=== PATIENT | female | born 1995 | race Caucasian/White ===

== ENCOUNTER 2022-12-21 23:39 | Inpatient (IN) ==
[2022-12-22] MEDS ORDERED: LACTATED RINGER'S 1,000 ML IV PRN (00:19)
[2022-12-22] MEDS ORDERED: LIDOCAINE 1% LOCAL 20 ML VIAL INFIL PRN (00:19)
[2022-12-22] MEDS ORDERED: OXYTOCIN 30 UNITS/500 ML BAG IV PRN ×2 (00:19→04:14)
[2022-12-22 01:00] LABS: Hematocrit (blood only) 31.9 % (37.0-47.0); Hemoglobin 10.8 g/dl (12.0-16.0); Mean Corpuscular Hgb Conc 33.9 g/dL (32.0-36.0); Mean Corpuscular Volume 91.7 fL (80.0-100.0); Platelet Count 224 K/uL (130-400); RDW Coefficient of Variation 13.8 % (11.5-14.5); RDW Standard Deviation 46.9 fL (36.4-46.3); Red Blood Count 3.48 M/uL (4.20-5.40); White Blood Count 10.76 K/ul (4.8-10.8)
[2022-12-22] MEDS ORDERED: fentaNYL citrate 100 MCG/2 ML VIAL ONE (01:05)
[2022-12-22] MEDS ORDERED: BUPIVACAINE 0.25% 30 ML VIAL ONE (01:05)
[2022-12-22] MEDS ORDERED: SODIUM CHLORIDE 0.9% INJ 10 ML VIAL ONE (01:05)
[2022-12-22] MEDS ORDERED: ePHEDrine sulfate 50 MG/ML AMP ONE (01:05)
[2022-12-22] MEDS ORDERED: LIDOCAINE 2%/EPINEPHRINE 1:200,000 20 ML SDV ONE (01:05)
[2022-12-22] MEDS ORDERED: fentaNYL 2MCG/ML ROPIVACAINE 1.25MG/ML 100 ML BAG EPI ONE (01:05)
--- NOTE | 2022-12-22 01:39 | Anesthesiology Consultation ---
Date of Service December 22, 2022 Assessment & Plan Chart Review Chart Review: Acceptable Risk for Labor Epidural Consults Requested none ASA ASA2 Proposed Anesthesia Anesthesia Type: Labor Epidural Risk / Benefits Reviewed With: PT / POA / Parent / Guardian, Accepts Plan and Informed Consent Obtained History Height/Weight Height: 5 ft 5 in Weight: 81.647 kg Allergies Allergy/AdvReac Type Severity Reaction Status Date / Time Penicillins AdvReac Chills Verified 12/22/22 00:07 Medications Home Medications Medication Instructions Recorded Confirmed Last Taken ferrous sulfate 325 mg (65 mg 1 mg PO DAILY 12/22/22 12/22/22 Unknown iron) tablet (Iron (ferrous sulfate)) Active Medications Generic Name Dose Route Start Last Admin Trade Name Freq PRN Reason Stop Dose Admin Lactated Ringer's 1,000 mls @ 125 mls/hr 12/22/22 00:19 12/22/22 00:32 Lr IV 12/24/22 00:18 999 mls/hr .Q8H PRN Administration L&D Protocol Protocol Cefazolin Sodium 1,000 mg in 7.5 mls @ 2.5 mls/min 12/22/22 07:19 12/22/22 00:38 Ancef 1000mg IV 01/01/23 07:18 2.5 mls/min Q8H PRN Administration GBS(+) Until Delivery Exercise / Class Metabolic Activity II 4-5 Yardwork/Stairs/Walk up hill Past Anesthesia History No Hx of Anesthesia Complications and No Family Hx of Anesthesia Complications History of PONV No Hx of PONV and No Hx of Motion Sickness Social History Smoking Status: Never smoker Hx Alcohol Use: No Hx Substance Use: No Physical Exam Vital Signs Last Vital Signs Temp 36.5 C 12/21/22 23:54 Pulse 86 12/22/22 01:34 Resp 18 12/21/22 23:54 BP 125/82 12/22/22 01:34 Constitutional no acute distress ENMT Thyromental Distance: > or= 3.5 Finger Breadths Mallampati Class: II Neck normal visual inspection Respiratory normal respiratory effort; no respiratory distress Auscultation: lungs clear to auscultation bilaterally Cardiovascular Rate/Rhythm: regular rate and regular rhythm Heart Sounds: no murmur Psychiatric Orientation: alert and oriented x 3 Testing Laboratory Results 12/22/22 00:37
[2022-12-22] MEDS ORDERED: ONDANSETRON INJ 2 MG/ML 2 ML VIAL IV PRN (01:49)
[2022-12-22] MEDS ORDERED: NALBUPHINE HCL INJ 10 MG/ML AMP IV PRN (01:49)
[2022-12-22] MEDS ORDERED: NALOXONE HCL 1 MG in SODIUM CHLORIDE 0.9% 1000ML 1,000 ML IV PRN (01:49)
[2022-12-22] MEDS ORDERED: diphenhydrAMINE 50 MG/ML VIAL IV PRN (01:49)
[2022-12-22] MEDS ORDERED: NALOXONE HCL 0.4 MG/1 ML VIAL/CARP IV PRN (01:49)
[2022-12-22] MEDS ORDERED: ePHEDrine sulfate 50 MG/ML AMP IV PRN (01:49)
[2022-12-22] MEDS ORDERED: DIPHTHERIA/TETANUS/PERTUSSIS 0.5mL SYR/VIAL (Age 7+yrs) IM ONE (04:14)
[2022-12-22] MEDS ORDERED: ACETAMINOPHEN 325 MG TAB PO PRN (04:14)
[2022-12-22] MEDS ORDERED: BENZOCAINE 20% AER SPR 82.5 GM CAN EXT PRN (04:14)
[2022-12-22] MEDS ORDERED: bisacodyL 10 MG SUPP PR PRN (04:14)
[2022-12-22] MEDS ORDERED: HYDROCORTISONE ACETATE 25 MG SUPP PR PRN (04:14)
[2022-12-22] MEDS ORDERED: fentaNYL 2MCG/ML ROPIVACAINE 1.25MG/ML 100 ML BAG EPI PRN (05:11)
[2022-12-22] MEDS ORDERED: ceFAZolin 1000MG 1,000 MG/7.5 ML SYR IV PRN (07:19)
[2022-12-22] MEDS: DOCUSATE SODIUM 100 MG CAP PO SCH ×2 (07:31→20:57)
[2022-12-22] MEDS: PRENATAL VITAMIN 1 TAB PO SCH (07:31)
--- NOTE | 2022-12-22 07:32 | Anesthesia Procedure Note ---
Date of Service December 22, 2022 Anesthesia Post Epidural Note Vital Signs Vital Signs: Temp Pulse Resp BP 98.1 F 85 18 114/61 12/22/22 02:08 12/22/22 06:19 12/22/22 06:27 12/22/22 06:19 Notes Mental Status: alert / awake / arousable and participated in evaluation Nausea / Vomiting: adequately controlled Pain: adequately controlled Airway Patency, RR, SpO2: stable & adequate BP & HR: stable & adequate Hydration State: stable & adequate Neuraxial Anesthesia: was administered and sensory block is resolving Anesthetic Complications: no major complications apparent and Pt Satisfied with anesthetic care Epidural: Removed without complications and With tip intact
--- NOTE | 2022-12-22 07:57 | Delivery Summary ---
DELIVERY NOTE The patient delivered a live infant male in left occiput anterior with right hand presentation. Infa nt was delivered. No nuchal cord. Infant was placed on mother's abdomen. Delayed cord clamp was pe rformed. Cord blood was obtained. Placenta was spontaneously delivered. Inspection of the placenta shows normal looking placenta with 3-vessel cord. Inspection of the perineum showed a midline secon d-degree laceration, which was repaired with 2-0 Vicryl in layers. Rectal exam post repair showed go od sphincter tone. No sutures are palpated in the rectum. Estimated blood loss was 400 mL. All instruments were removed from the vagina and accounted for x2 in cluding sponges, needles, and retractors. The patient and are stable in recovery. Job ID: [id number]
[2022-12-22] MEDS ORDERED: MEASLES, MUMPS & RUBELLA VIRUS VIAL SQ ONE (14:45)
[2022-12-22] MEDS: IBUPROFEN 600 MG TAB PO PRN (20:57)
[2022-12-23 06:38] LABS: Hematocrit (blood only) 29.8 % (37.0-47.0); Hemoglobin 10.1 g/dl (12.0-16.0); Mean Corpuscular Hemoglobin 31.8 pg (25.0-34.0); Mean Corpuscular Hgb Conc 33.9 g/dL (32.0-36.0); Mean Corpuscular Volume 93.7 fL (80.0-100.0); Mean Platelet Volume 9.8 fL (9.4-12.4); Platelet Count 220 K/uL (130-400); RDW Coefficient of Variation 14.1 % (11.5-14.5); RDW Standard Deviation 48.7 fL (36.4-46.3); Red Blood Count 3.18 M/uL (4.20-5.40)
[2022-12-23] MEDS: DOCUSATE SODIUM 100 MG CAP PO SCH ×2 (08:09→20:39)
[2022-12-23] MEDS: PRENATAL VITAMIN 1 TAB PO SCH (08:09)
--- NOTE | 2022-12-23 11:01 | Obstetrical Progress Note ---
Date of Service December 23, 2022 Subjective Ambulation: ambulating normally Voiding: no voiding problems Passing Gas:: Yes Diet Tolerance:: regular diet Lochia:: Small Feeding Type:: bottle feeding Current Pain Level(1-10): 0 doing well Physical Exam Constitutional WD/WN, vitals as above Gastrointestinal (Abdomen) Inspection/Auscultation: abdomen normal to inspection abdomen soft and non-tender fundus firm below U Musculoskeletal Extremities: extremities normal to inspection Skin no rashes, warm and dry Neurologic patellar DTR's 2+ bilat, sensation intact Psychiatric A+Ox3, euthymic affect Results & Data Vital Signs (Past 12 Hours) Vital Signs Temp Pulse Resp BP Pulse Ox O2 Del Method 12/23/22 07:35 Room Air 12/23/22 07:35 36.7 C 86 18 118/71 99 Room Air 12/23/22 04:50 36.6 C 68 18 116/71 12/22/22 23:25 36.4 C L 69 18 115/67 Laboratory Results Laboratory Results - last 48 hr 12/22/22 12/22/22 12/23/22 00:37 Unknown 05:50 WBC 10.76 9.90 RBC 3.48 L 3.18 L Hgb 10.8 L 10.1 L Hct 31.9 L 29.8 L MCV 91.7 93.7 MCH 31.0 31.8 MCHC 33.9 33.9 RDW Std Deviation 46.9 H 48.7 H RDW Coeff of Moises 13.8 14.1 Plt Count 224 220 MPV 10.0 9.8 SARS-CoV-2, RNA, NAAT NEGATIVE
[2022-12-23] MEDS ORDERED: bisacodyL 5 MG TABEC PO SCH (20:00)
[2022-12-23] MEDS: IBUPROFEN 600 MG TAB PO PRN (20:39)
[2022-12-24 06:48] LABS: Hematocrit (blood only) 30.4 % (37.0-47.0); Hemoglobin 10.1 g/dl (12.0-16.0)
[2022-12-24] MEDS: PRENATAL VITAMIN 1 TAB PO SCH (09:24)
[2022-12-24] MEDS: DOCUSATE SODIUM 100 MG CAP PO SCH (09:24)
--- NOTE | 2022-12-24 09:46 | Obstetrical Progress Note ---
Date of Service December 24, 2022 Assessment & Plan Admission and Anticipated Discharge Date Admission Date: December 22, 2022 Subjective Patient is seen and examined. She feels well, no complaints. Ambulating without dizziness Voiding without difficulty Tolerating regular diet with out N&V Bleeding is minimal No fever/ chills/ CP/ SOB/ N&V/ Leg pain Bottle feeding without problems Vital Signs Temp Pulse Resp BP Pulse Ox O2 Del Method 12/23/22 23:40 36.6 C 78 16 101/62 98 Room Air Lab Results 12/22/22 12/22/22 12/23/22 Range/Units 00:37 Unknown 05:50 WBC 10.76 9.90 (4.8-10.8) K/ul RBC 3.48 L 3.18 L (4.20-5.40) M/uL Hgb 10.8 L 10.1 L (12.0-16.0) g/dl Hct 31.9 L 29.8 L (37.0-47.0) % MCV 91.7 93.7 (80.0-100.0) fL MCH 31.0 31.8 (25.0-34.0) pg MCHC 33.9 33.9 (32.0-36.0) g/dL RDW Std Deviation 46.9 H 48.7 H (36.4-46.3) fL RDW Coeff of Moises 13.8 14.1 (11.5-14.5) % Plt Count 224 220 (130-400) K/uL MPV 10.0 9.8 (9.4-12.4) fL SARS-CoV-2, RNA, NAAT NEGATIVE (NEGATIVE) 12/24/22 Range/Units 06:01 WBC (4.8-10.8) K/ul RBC (4.20-5.40) M/uL Hgb 10.1 L (12.0-16.0) g/dl Hct 30.4 L (37.0-47.0) % MCV (80.0-100.0) fL MCH (25.0-34.0) pg MCHC (32.0-36.0) g/dL RDW Std Deviation (36.4-46.3) fL RDW Coeff of Moises (11.5-14.5) % Plt Count (130-400) K/uL MPV (9.4-12.4) fL SARS-CoV-2, RNA, NAAT (NEGATIVE) PE: General: Alert, orientedx3, NAD Abd: soft, NT, fundus firm, below Umbilicus Perineum intact, Lochia rubra minimal Ext; NT, no edema AP: 27 yo s/p , ppd# 2 VSS Afebrile doing well Continue routine care All questions were answered D/C home , f/u in office Results & Data Vital Signs (Past 12 Hours) Vital Signs Temp Pulse Resp BP Pulse Ox O2 Del Method 12/23/22 23:40 36.6 C 78 16 101/62 98 Room Air
== END 2022-12-24 15:10 | disposition home or self-care (01) | DRG 807 ==
LOC: OPB 23:39 → 4S1 23:45 → 4E2 12-22 06:49